=== PATIENT | female | born 1935 | race Caucasian/White ===

== ENCOUNTER 2016-12-27 11:17 | Emergency (ER) | payer OTHER ==
[~2016-12-27] VITALS: Ht 149.9 cm; Wt 54.0 kg
[2016-12-27 11:19] VITALS: BP 165/75
[2016-12-27 11:43] LABS: HEMATOCRIT 34.4 % (37.0-47.0); HEMOGLOBIN 11.2 gm/dL (12.0-15.0)
== END 2016-12-27 12:56 | disposition home or self-care (01) ==
LOC: ER 11:17
PROVIDERS: Nurse Practitioner
DX: T82.590A Other mechanical complication of surgically created arteriovenous fistula, initial encounter (principal); Z99.2 Dependence on renal dialysis; E11.9 Type 2 diabetes mellitus without complications; I10 Essential (primary) hypertension; E78.5 Hyperlipidemia, unspecified; Z88.0 Allergy status to penicillin; Z88.2 Allergy status to sulfonamides; Y92.89 Other specified places as the place of occurrence of the external cause; Y83.8 Other surgical procedures as the cause of abnormal reaction of the patient, or of later complication, without mention of misadventure at the time of the procedure